=== PATIENT | female | born 1995 | race Caucasian/White ===

== ENCOUNTER 2017-04-15 17:45 | Emergency (ER) | payer BC, OTHER ==
[~2017-04-15] VITALS: Ht 157.5 cm; Wt 77.1 kg
[2017-04-15] MEDS ORDERED: LEUP375KIT IM (18:00)
[2017-04-15] MEDS ORDERED: EFFE37.527 PO (18:00)
[2017-04-15] MEDS ORDERED: TAMO20TA4 PO (18:00)
[2017-04-15] MEDS ORDERED: HERC440I2 IV (18:00)
[2017-04-15] MEDS ORDERED: [UNRECOGNIZED DRUG - OTHER] (18:00)
[2017-04-15] MEDS ORDERED: ACET30TAB PO (19:26)
[2017-04-15 19:45] VITALS: BP 138/83
== END 2017-04-15 19:47 | disposition home or self-care (01) ==
LOC: M ED 19:24
DX: S52.572D Other intraarticular fracture of lower end of left radius, subsequent encounter for closed fracture with routine healing (principal); W23.0XXA Caught, crushed, jammed, or pinched between moving objects, initial encounter; Y92.89 Other specified places as the place of occurrence of the external cause; Y93.89 Activity, other specified; Y99.8 Other external cause status; F99 Mental disorder, not otherwise specified; C50.912 Malignant neoplasm of unspecified site of left female breast; Z90.10 Acquired absence of unspecified breast and nipple; Z79.899 Other long term (current) drug therapy

== ENCOUNTER → 2017-04-15 | Outpatient (CLI) | payer BC ==
[~2017-04-15] MED LIST: ACET30TAB PO; EFFE37.527 PO; HERC440I2 IV; LEUP375KIT IM; TAMO20TA4 PO; [UNRECOGNIZED DRUG - OTHER]
--- NOTE | 2017-04-15 15:04 | REP ---
LEFT WRIST, FOUR VIEWS: HISTORY: Pain. There is a nondisplaced intra-articular fracture of the distal radius. There is no dislocation. IMPRESSION: Nondisplaced fracture of the distal radius. Signed by Jose Cabrera MD 04/15/2017 03:06 P
== END ==
LOC: M WUC 14:18
PROVIDERS: ATTEND Physician Assistant
DX: M25.532 Pain in left wrist (principal)

== ENCOUNTER → 2017-08-24 | Outpatient (REF) | payer BC | LOC: M LAB REF 12:28 | PROVIDERS: ATTEND Internal Medicine Medical Oncology | DX: C50.919 Malignant neoplasm of unspecified site of unspecified female breast (principal) ==

== ENCOUNTER → 2017-09-02 | Outpatient (CLI) | payer BC ==
--- NOTE | 2017-09-03 09:09 | DEXA ---
AP SPINE L1 - L4 1.129 -0.5 -0.5 LT FEMUR TOTAL 0.952 -0.4 -0.5 RT FEMUR TOTAL 1.003 0.0 0.0 TOTAL BODY TOTAL OTHER DUAL FEMUR FRAX* ASSESSMENT Risk factors: 10 year probability of fracture Major osteoporotic fracture Hip fracture COMMENTS: Normal bone densitometry of the spine and hips. FOLLOW-UP: Recommendation for the next bone density exam: 5 years. MTDD
== END ==
LOC: M WHC 09:05
PROVIDERS: ATTEND Internal Medicine Medical Oncology
DX: Z51.81 Encounter for therapeutic drug level monitoring (principal); Z79.899 Other long term (current) drug therapy; C50.919 Malignant neoplasm of unspecified site of unspecified female breast

== ENCOUNTER → 2017-11-02 | Outpatient (CLI) | payer BC ==
--- NOTE | 2017-11-02 22:30 | ECHO ---
DATE OF PROCEDURE: 11/02/2017 REFERRING PHYSICIAN: Dr. Yahir Anderson INDICATION: Chemotherapy drugs that may affect the heart. HEIGHT: 62 inches. WEIGHT: 180 pounds. 2D MEASUREMENTS: Left atrium: 3.5 cm Aortic root: 2.7 cm Ventricular septum: 0.89 cm Posterior wall: 0.90 cm Left ventricle diastole: 4.6 cm LVOT: 2.1 cm Inferior vena cava: 1.6 cm (more than 50% respiratory variation). Central venous pressure estimated to be 5-10 mmHg. DOPPLER MEASUREMENTS: Aortic valve velocity: 142 cm/s LVOT velocity: 85.0 cm/s LVOT VTI: 16.6 cm Mitral E velocity: 96.3 cm/s Mitral A velocity: 16.2 cm/s Mitral deceleration time: 211 ms Pulmonary artery systolic pressure: 38 mmHg by pulmonary acceleration time method. MITRAL ANNULAR TISSUE DOPPLER: E prime septal: 10.1 cm/s E prime lateral: 17.2 cm/s DESCRIPTION: Rhythm was sinus. Image quality was good. No pericardial effusion. This is a 2D, M-mode, color flow Doppler and pulse wave Doppler examination and included mitral annular tissue Doppler. CONCLUSIONS: 1. Normal left ventricle internal dimensions and wall thickness. Normal regional left ventricular (LV) wall motion and wall thickening. Normal LV diastolic function. Left ventricular ejection fraction (LVEF) 65% by visual estimate. 2. No pericardial effusion. 3. Suggestive of mild elevation of pulmonary artery systolic pressure. 4. Otherwise normal appearing echocardiogram Doppler.
== END ==
LOC: M CARPUL 09:27
PROVIDERS: ATTEND Internal Medicine Medical Oncology
DX: C50.919 Malignant neoplasm of unspecified site of unspecified female breast (principal)

== ENCOUNTER → 2017-12-31 | Outpatient (REF) | payer BC ==
[2017-12-31 14:27] LABS: TOTAL 25(OH) VITAMIN D 20.2 NG/ML (30.0-100.0)
== END ==
LOC: M LAB REF 12:58
DX: C50.919 Malignant neoplasm of unspecified site of unspecified female breast (principal)
CPT/HCPCS: 82306